=== PATIENT | female | born 1985 | race Caucasian/White ===

== ENCOUNTER 2018-09-25 22:53 | Emergency (ER) | payer OTHER ==
[2018-09-26] MEDS: HYDROCODONE/APAP (5/325) TAB PO (02:05)
== END 2018-09-26 03:30 | disposition home or self-care (01) ==
LOC: FTE 22:53
DX: S16.1XXA Strain of muscle, fascia and tendon at neck level, initial encounter (principal); S39.92XA Unspecified injury of lower back, initial encounter; V49.59XA Passenger injured in collision with other motor vehicles in traffic accident, initial encounter
CPT/HCPCS: 72040; 72100; 81025; 99283-25